=== PATIENT | female | born 1985 | race Caucasian/White ===

== ENCOUNTER 2024-02-16 18:48 | Emergency (ER) | payer SELFPAY ==
[~2024-02-16] VITALS: Ht 170.2 cm; Wt 97.5 kg
[2024-02-16 19:20] VITALS: BP_SYST 124; PULSE 101; RESP 20; TEMP 98; O2SAT 96
== END 2024-02-16 21:45 | disposition left against medical advice (07) ==
LOC: SED 18:48
DX: M79.601 Pain in right arm (principal); Z53.21 Procedure and treatment not carried out due to patient leaving prior to being seen by health care provider